=== PATIENT | female | born 1975 | race Caucasian/White ===

== ENCOUNTER 2020-04-21 10:42 | Emergency (ER) | payer OTHER ==
[~2020-04-21] VITALS: Ht 170.2 cm; Wt 79.4 kg
[2020-04-21 10:42] VITALS: BP_SYST 159
--- NOTE | 2020-04-21 10:49 | NUR ---
Patient triaged and placed in waiting room. VSS and patient appears in no acute distress at this time. Awaiting available bed, and MD notified of need for MSE.
--- NOTE | 2020-04-21 10:50 | NUR ---
Dr. George in waiting room examining patient.
--- NOTE | 2020-04-21 12:03 | NUR ---
Patient given written and verbal discharge instructions and verbalizes understanding. ER MD discussed with patient the results and treatment provided. Patient in stable condition. ID arm band removed. Rx of naproxen given. Patient educated on pain management and to follow up with PMD. Pain Scale 0/10. Opportunity for questions provided and answered. Medication side effect fact sheet provided.
[2020-04-21 12:04] VITALS: BP_SYST 159
== END 2020-04-21 12:04 | disposition home or self-care (01) ==
LOC: SED 10:42
DX: R20.2 Paresthesia of skin (principal); M79.602 Pain in left arm; I10 Essential (primary) hypertension
CPT/HCPCS: 93971; 99284